=== PATIENT | female | born 1965 | race Caucasian/White ===

== ENCOUNTER 2018-03-27 11:25 | Emergency (ER) | payer OTHER ==
[2018-03-27 14:11] LABS: URINE BLOOD (Dip) POC Trace-lysed (NEGATIVE); URINE GLUCOSE (Dip) POC Negative (NEGATIVE); URINE KETONES (Dip) POC Negative (NEGATIVE); URINE LEUKOCYTE EST (Dip) POC Negative (NEGATIVE); URINE NITRITE (Dip) POC Negative (NEGATIVE); URINE TOTAL PROTEIN POC Negative (NEGATIVE)
[2018-03-27] MEDS: MECLIZINE 12.5 MG TAB PO (14:14)
[2018-03-27] MEDS: IBUPROFEN 600 MG TAB PO (14:14)
== END 2018-03-27 15:40 | disposition home or self-care (01) ==
LOC: E/R 11:25
DX: H81.93 Unspecified disorder of vestibular function, bilateral (principal); I10 Essential (primary) hypertension
CPT/HCPCS: 81003; 81025; 93005; 99283-25